=== PATIENT | female | born 1955 | race African-American/Black ===

== ENCOUNTER 2017-01-01 07:15 | Day surgery (SDC) | payer OTHER ==
[2016-12-30 13:44] LABS: BASOPHILS 0.2 % (0-2); EOSINOPHILS 2.1 % (0-7); HEMATOCRIT 40.3 % (36.0-48.0); HEMOGLOBIN 13.1 g/dL (12-16); IMMATURE GRANULOCYTES 0.5 % (0-5); MCH 28.5 pg (26.0-34.0); MCHC 32.5 g/dL (31.0-37.0); MCV 87.6 fL (80.0-100.0); MEAN PLATELET VOLUME 9.8 fL (7.4-10.4); MONOCYTES 5.3 % (2-11); NEUTROPHILS 62.9 % (40-80); PLATELET COUNT 267 10x3/uL (130-400); RDW 14.3 % (11.5-14.5); WBC 13.1 10x3/uL (4.8-10.8)
[2016-12-30 13:52] LABS: APTT 29.4 SECONDS (22.8-39.4); INR 1.03 (0.85-1.17); PROTIME 13.4 SECONDS (11.6-15.0)
[2016-12-30 14:11] LABS: ANION GAP 13.5 mmol/L (8-16); CALCIUM 8.8 mg/dL (8.5-10.1); CARBON DIOXIDE 27.4 mmol/L (21.0-32.0); CREATININE - SERUM 0.9 mg/dL (0.6-1.3); POTASSIUM - SERUM 3.9 mmol/L (3.5-5.1)
[~2017-01-01] VITALS: Ht 158.8 cm; Wt 122.5 kg
[~2017-01-01 07:15] MED LIST: ASPIRIN325 MG PO; JANUMET 50-1,001 TAB PO; LISINOPRIL PO; NORVASC5 MG PO; SYNTHROID200 MC1 PO; TESSALON PERLE100 MG PO; ZESTRIL40 MG PO
[2017-01-01 07:44] VITALS: BP 157/76; Ht 158.8 cm; Wt 122.5 kg
--- NOTE | 2017-01-01 12:28 | HP ---
PATIENT: GOLDIE CROCKETT MEDICAL RECORD: [id number] ACCOUNT: [id number] LOCATION:[facility] : 57 ADMISSION DATE: 01/01/17 HISTORY AND PHYSICAL EXAMINATION HISTORY OF PRESENT ILLNESS: This patient is a 61-year-old 3, para 3 black female with postmenopausal bleeding and an endometrial measurement of 6 mm. She is scheduled for examination under anesthesia, endocervical curettage, hysteroscopy, endometrial biopsies, all indicated procedures to evaluate and treat for postmenopausal bleeding. MEDICAL HISTORY: DRUG ALLERGIES: None known. CURRENT MEDICATIONS: Lisinopril, amlodipine, levothyroxine, Janumet, aspirin and pravastatin. FAMILY HISTORY: Noncontributory. REVIEW OF SYSTEM AND MEDICAL HISTORY: The patient had atrial fibrillation and hypertension for which she takes medications. She suffers from hot flashes and night sweats. PREVIOUS SURGERIES: Includes thyroid surgery. She has also suffered from cellulitis and a fracture of her back in 2008 and she has undergone a hysteroscopy. PHYSICAL EXAMINATION: VITAL SIGNS: The patient weighs 270 pounds, blood pressure 150/80. HEENT: Grossly unremarkable. LUNGS: Clear. HEART: Regular rate and rhythm. ABDOMEN: Soft, obese. PELVIC: Exam is current and deferred per anesthesia. EXTREMITIES: No cyanosis, clubbing or edema. IMPRESSION: Postmenopausal bleeding. PLAN: Examination under anesthesia, endocervical curettage, hysteroscopy, endometrial biopsy, and endometrial curettage, all indicated procedures. I have discussed in detail the planned procedures and potential complications. All questions were answered. TRANSINT:[id number] Voice Confirmation ID: [id number] DOCUMENT ID: [id number] HISTORY AND PHYSICAL [id number] GOLDIE CROCKETT STEVE PEREZ MD at 1228 CC: [id number] DICTATION DATE: 12/31/16 1631 [employer] HELPER: 12/31/161999 [id number] [place] [address]
--- NOTE | 2017-01-01 14:08 | NUR ---
1400 [facility] [place] DIET SERVED.
--- NOTE | 2017-01-01 15:21 | NUR ---
1515 PT CALLED OUT AND IS READY FOR RELEASE, W/C REQUESTED, RELEASED IN WC.
--- NOTE | 2017-01-03 14:17 | OP ---
PATIENT NAME: GOLDIE CROCKETT MEDICAL RECORD: [id number] :57 LOCATION:[facility] ADMISSION DATE: SURGEON: IZZY PEREZ MD DATE OF OPERATION: 01/01/2017 PREOPERATIVE DIAGNOSES: Postmenopausal bleeding and stenotic cervix. POSTOPERATIVE DIAGNOSES: Postmenopausal bleeding and stenotic cervix and severely stenotic cervix. PROCEDURE: Examination under anesthesia, cervical dilatation and biopsy of endometrial lesions. SURGEON: Izzy Perez MD. ANESTHESIA: General. FINDINGS: A severely stenotic cervix, atrophic vaginal tissues, 2 irregular lesions located anterior wall of the endometrium, one near at the fundus and one located on inferior anterior wall of the uterus and the endometrium. The rest of the endometrium and endocervix were bland in appearance. ESTIMATED BLOOD LOSS: Minimal. COMPLICATIONS: None. OPERATIVE NOTE: The patient was taken to the OR and after adequate general anesthesia, prepped and draped in the usual manner for vaginal procedures. The cervix was identified superiorly in the vagina, grasped with a tenaculum. The cervix was pinpoint severely stenotic. It was gently teased open and progressively dilated and able to dilate adequately for the larger endometrial hysteroscope, a smaller scope was used which did limit ability and evaluating the endometrium with a thorough curettage. The 2 lesions that were identified, were biopsied, they were small in appearance and most of the lesions actually removed by the biopsy instrument. At the end of procedure, all instruments were removed. Again, further dilatation was attempted in order to allow a curettage, but this was not possible. All instruments were removed, bleeding was minimal and the patient went to the recovery area in good condition. TRANSINT:[id number] Voice Confirmation ID: [id number] DOCUMENT ID: [id number] IZZY PEREZ MD at 1417 CC: [id number] DICTATION DATE: 01/01/17 1317 PATIENT FINANCIAL REP: 01/01/17 2030 [facility] 01/01/17 [place] [id number]
== END 2017-01-01 15:21 | disposition home or self-care (01) ==
LOC: D.OPS 07:15 → D.PAN 10:45 → D.OPS 10:45
PROVIDERS: Anesthesiology; Obstetrics & Gynecology
DX: N95.0 Postmenopausal bleeding (principal); N88.2 Stricture and stenosis of cervix uteri; Z79.84 Long term (current) use of oral hypoglycemic drugs; Z79.82 Long term (current) use of aspirin; I48.91 Unspecified atrial fibrillation; I10 Essential (primary) hypertension; Z79.899 Other long term (current) drug therapy; Z01.812 Encounter for preprocedural laboratory examination